=== PATIENT | female | born 1965 | race Caucasian/White ===

== ENCOUNTER 2021-06-13 18:17 | Emergency (ER) | payer BC, SELFPAY ==
--- NOTE | ~2021-06-13 | XR_ITS ---
[[id number] ] INDICATION: Right rib pain TECHNIQUE: Frontal projection of the upper right ribs, frontal projection of the lower right ribs, ob lique projection of all the right ribs, frontal inspiratory chest x-ray for interpretation. FINDINGS: There are no displaced rib fractures identified. There are no soft tissue abnormality see n. The lungs are clear. IMPRESSION: 1:No displaced rib fractures. Reviewed, dictated and finalized at location A. [facility]
[2021-06-13 18:31] VITALS: BP 131/93; PULSE 100; RESP 18; TEMP 36.9; O2SAT 100
--- NOTE | 2021-06-13 18:53 | ED.CHESTPAIN ---
HPI - Chest Pain General Chief Complaint: Chest Pain Stated Complaint: rt rib pain Source: patient and RN notes reviewed Limitations: no limitations History of Present Illness HPI narrative: The patient, a non-smoker/nondrinker, presents with atraumatic, right chest wall pain. Patient states she is has a history of right-sided breast cancer and is a 7-year survivor with associated chemo-induced. XRT osteoporosis. While doing stretching/yoga a week ago, she developed right-sided chest pain that is mild, worse with motion or deep breathing, better at rest; she is heard/felt a audible pop . No fever, cough, shortness of breath, bruising/skin changes; no loss of taste/smell, S OB, wheezing, other chest pains. Vital signs remarkable for blood pressure 130s over 90s. The patient has been informed that they may have pre-hypertension or Hypertension based on a BP reading in the department. I recommend that the patient call the primary care provider listed on their discharge instructions or a physician of their choice this week to arrange follow up for further evaluation of possible pre-hypertension or Hypertension Related Data Home Medications Medication Instructions Recorded Confirmed ascorbate calcium (vitamin C) 500 500 mg PO DAILY 04/22/20 mg tablet cholecalciferol (vitamin D3) 325 325 mcg PO WEEKLY 04/22/20 mcg (13,000 unit) capsule letrozole 2.5 mg tablet 2.5 mg PO DAILY 04/22/20 levothyroxine 50 mcg tablet 50 mcg PO DAILY 04/22/20 metformin 500 mg tablet 500 mg PO DAILY 04/22/20 Allergies Allergy/AdvReac Type Severity Reaction Status Date / Time No Known Allergies Allergy Verified 06/13/21 18:34 Review of Systems Review of Systems: General/Constitutional: No weight loss,fever Eyes: N0: Redness,discharge Ears/Nose/Throat: No: Epistaxis,ear discharge Respiratory: Denies: Hemoptysis Gastrointestinal: No Vomiting, Bleeding-rectal Skin: No Lumps, eruption Neurologic: No Focal Weakness,Sz Hematologic: Denies: Petechiae/Purpura Psychiatric: No: Suicida ideationl All Other Systems: Reviewed and Negative [facility] Past Medical History Medical History (Updated 06/14/21 @ 00:00 by Lonnie Gonzáles) History of breast cancer Hypothyroid Surgical History Surgical History (Updated 04/22/20 @ 16:37 by Beata Crawley CMA) History of breast reconstruction History of lymph node dissection of axilla History of mastectomy History of tonsillectomy History of wisdom tooth extraction Family History Family History (Updated 04/22/20 @ 16:38 by Beata Crawley CMA) Father Diabetes mellitus Comments At time of signature, agree with nursing past medical, surgical, social and family history. There is no relevant family history pertinent to the presenting complaint Exam Narrative: General Appearance: Well appearing, Conjunctiva clear Ears: External ear normal Nose: Normal nose Mouth/Throat: Normal appearing, Normal lips, Supple Respiratory: Tender right chest wall about T4-T6 anteriorly, airway patent, No respiratory distress Cardiovascular: RRR Abdomen: Soft, Non-tender, No massess, Musculoskeletal: Full ROM Skin: Warm, Dry, XRT changes of right chest Neurological: A&O x3, Normal affect Course Course Emergency Course: Films visualized, interpreted by radiologist, agree, normal see report Vital Signs Vital signs: Vital Signs Temperature 98.4 F 06/13/21 18:31 Pulse Rate 100 06/13/21 18:31 Respiratory Rate 18 06/13/21 18:31 Blood Pressure 131/93 H 06/13/21 18:31 Pulse Oximetry 100 06/13/21 18:31 Temperature 98.4 F 06/13/21 18:31 Pulse Rate 100 06/13/21 18:31 Respiratory Rate 18 06/13/21 18:31 Blood Pressure 131/93 H 06/13/21 18:31 Pulse Oximetry 100 06/13/21 18:31 Discharge Plan Discharge Clinical Impression: Chest wall pain Patient Disposition: Home, Self-Care Condition: Stable Instructions: Rib Contusion (ED) Prescript
== END 2021-06-13 19:12 | disposition home or self-care (01) ==
PROVIDERS: Emergency Provider Emergency Medicine; PCP Nurse Practitioner
DX: R07.89 Other chest pain (principal); E03.9 Hypothyroidism, unspecified; Z85.3 Personal history of malignant neoplasm of breast; M81.8 Other osteoporosis without current pathological fracture
CPT/HCPCS: 71101; 99213; G0463

== ENCOUNTER 2023-10-14 17:25 | Emergency (ER) | payer BC, SELFPAY ==
--- NOTE | ~2023-10-14 | XR_ITS ---
EXAM: XR finger 4th RT min 2V DATE: 10/14/2023 17:47 HISTORY: leash pulled finger . COMPARISON: None available. FINDINGS: Decreased mineralization. Oblique, minimally displaced, extra-articular fracture of the ri ght middle phalange. No lytic or blastic lesion. Mild scattered degenerative changes. No erosion or p eriosteal change. Soft tissues within normal limits. IMPRESSION: Oblique, minimally displaced, extra-articular fracture of the right fourth middle phalang e. Reviewed, dictated and finalized at location K. IMPRESSION: Oblique, minimally displaced, extra-articular fracture of the right fourth middle phalange.
--- NOTE | 2023-10-14 17:26 | ED.UPPEXIN ---
HPI - Extremity Injury (Upper) General Chief Complaint: Extremity Injury, Upper Stated Complaint: Right Finger Injury Time Seen by Provider: 10/14/23 17:26 Source: patient Mode of arrival: ambulatory Limitations: no limitations History of Present Illness HPI narrative: Patient is a 58-year-old female that presents with right distal ring finger injury. Patient states she was walking dogs and leash pulled finger. Patient states it was initially out of alignment and she pushed it back. Patient has history of lymph nodes removed on right arm and is concern for swelling. Ice placed in triage. Related Data Home Medications Medication Instructions Recorded Confirmed ascorbate calcium (vitamin C) 500 500 mg PO DAILY 04/22/20 10/14/23 mg tablet cholecalciferol (vitamin D3) 325 325 mcg PO WEEKLY 04/22/20 10/14/23 mcg (13,000 unit) capsule letrozole 2.5 mg tablet 2.5 mg PO DAILY 04/22/20 10/14/23 levothyroxine 50 mcg tablet 50 mcg PO DAILY 04/22/20 10/14/23 (Synthroid) metformin 500 mg tablet 500 mg PO DAILY 04/22/20 10/14/23 Allergies Allergy/AdvReac Type Severity Reaction Status Date / Time No Known Allergies Allergy Verified 10/14/23 17:38 Review of Systems Review of Systems: All systems reviewed & are unremarkable except as noted in HPI and below Constitutional: Constitutional: Denies body ache(s), Denies chills, Denies fatigue, Denies fever(s), Denies headache(s), Denies malaise and Denies weakness Eyes: Eyes: Denies blurry vision, Denies irritation and Denies loss of vision ENT: Denies otalgia, Denies headache(s), Denies nasal discharge, Denies sinus pain and Denies sore throat Cardiovascular: Cardiovascular: Denies chest pain, Denies irregular heart rhythm and Denies dyspnea Respiratory: Respiratory: Denies dyspnea Gastrointestinal: Gastrointestinal: Denies abdominal pain, Denies melena, Denies hematochezia, Denies diarrhea, Denies nausea and Denies vomiting Musculoskeletal: Musculoskeletal: Denies back pain, Denies myalgias and Reports arthralgias Integumentary/Breasts: Skin/Breast: Denies pruritus and Denies rash Neurologic: Denies headache(s), Denies loss of vision and Denies weakness Psychiatric: Psychiatric: Reports no additional psychiatric complaints Endocrine: Endocrine: Denies fatigue PMFSH Past Medical History Medical History History of breast cancer Hypothyroid Surgical History Surgical History History of breast reconstruction History of lymph node dissection of axilla History of mastectomy History of tonsillectomy History of wisdom tooth extraction Family History Family History Father Diabetes mellitus Father Diabetes mellitus Family history of cardiovascular disease Social History Social History Smoking status: Never smoker Comments At time of signature, agree with nursing past medical, surgical, social and family history. There is no relevant family history pertinent to the presenting complaint. Exam Const: General: cooperative, healthy appearing, comfortable, no acute distress and well nourished Nutritional Appearance: well nourished Orientation/consciousness: patient oriented x3 Limitations: no limitations HENMT: Head: normal to inspection, normocephalic and atraumatic Ears: hearing grossly normal bilaterally and external ears normal Face/Nose/Sinus: Normal external nose present, normal facial exam and face symmetric Face and sinus: normal facial exam and face symmetric Mouth: Yes lip normal Eyes: General: appearance normal, both eyes and all related structures Alignment and Position: alignment normal and position normal Periorbital: periorbital findings normal Eyelids: eyelids normal Pupils: Equal, round and reactive pupils present
[2023-10-14 17:32] VITALS: BP 121/50; PULSE 90; RESP 20; TEMP 36.8; O2SAT 99
== END 2023-10-14 18:37 | disposition home or self-care (01) ==
PROVIDERS: Emergency Provider Nurse Practitioner Family; PCP Nurse Practitioner
DX: S62.624A Displaced fracture of middle phalanx of right ring finger, initial encounter for closed fracture (principal); X58.XXXA Exposure to other specified factors, initial encounter; Y93.K1 Activity, walking an animal; E03.9 Hypothyroidism, unspecified; Z85.3 Personal history of malignant neoplasm of breast; Z90.10 Acquired absence of unspecified breast and nipple
CPT/HCPCS: 29130; 73140; 99213; G0463

== ENCOUNTER 2023-11-26 08:03 | Emergency (ER) | payer BC, SELFPAY ==
[2023-11-26 08:17] VITALS: BP 129/71; PULSE 78; RESP 16; TEMP 36.6; O2SAT 100
--- NOTE | 2023-11-26 08:18 | ED.SKABFB ---
HPI - Skin/Abscess/Foreign Bdy General Chief complaint: Skin/Abscess/Foreign Body Stated complaint: insect bite Source: patient Mode of arrival: ambulatory Limitations: no limitations History of Present Illness HPI narrative: 58 y/o female presented for c/o insect bite to left neck. First noticed 2 days ago. Endorses itching and the redness has spread since onset. Unsure of what type of insect. Pt has applied hydrocortisone and antibiotic ointment. Pt was staying in a hotel for a few days, but denies any other locations of skin changes/lesions. States she walked outside for several hours while in [facility]. Denies lip, tongue, or throat swelling, shortness of breath or wheezing. Denies changes to soap, detergent, lotion, or any other exposures. No one else in the house or any contacts with similar symptoms. Related Data Home Medications Medication Instructions Recorded Confirmed ascorbate calcium (vitamin C) 500 500 mg PO DAILY 04/22/20 11/26/23 mg tablet cholecalciferol (vitamin D3) 325 325 mcg PO WEEKLY 04/22/20 11/26/23 mcg (13,000 unit) capsule letrozole 2.5 mg tablet 2.5 mg PO DAILY 04/22/20 11/26/23 levothyroxine 50 mcg tablet 50 mcg PO DAILY 04/22/20 11/26/23 (Synthroid) metformin 500 mg tablet 500 mg PO DAILY 04/22/20 11/26/23 Allergies Allergy/AdvReac Type Severity Reaction Status Date / Time No Known Allergies Allergy Verified 11/26/23 08:18 Review of Systems Review of Systems: CONSTITUTIONAL: Denies body aches, fever, chills, or sweats. EYES: Denies visual changes, redness, or discharge. ENT: Denies rhinorrhea, congestion CARDIOVASCULAR: Denies chest pain, palpitations, or edema. RESPIRATORY: Denies cough or dyspnea. GASTROINTESTINAL: Denies abdominal pain, nausea, vomiting, or diarrhea. SKIN: reports itching, bite MUSCULOSKELETAL: Denies back pain, joint pain, or myalgia. NEUROLOGIC: Denies headache, numbness, tingling, or weakness. REPLACED BY [facility] Past Medical History Medical History History of breast cancer Hypothyroid Surgical History Surgical History History of breast reconstruction History of lymph node dissection of axilla History of mastectomy History of tonsillectomy History of wisdom tooth extraction Family History Family History Father Diabetes mellitus Father Diabetes mellitus Family history of cardiovascular disease Social History Social History Smoking status: Never smoker Comments At time of signature, I have reviewed and agree with nursing past medical, surgical, social and family history unless otherwise noted. Please see nursing chart for further information. There is no relevant family history pertinent to the presenting complaint Exam Narrative: GENERAL: Well-appearing HEAD: Normocephalic, atraumatic. EYES: conjunctivae clear, and EOMI. ENT: Mucous membranes moist. Oropharynx without edema, erythema or lesions. NECK: Supple. No lymphadenopathy; full ROM. CHEST: Clear to auscultation. HEART: Regular rate and rhythm. SKIN: Warm, dry. Left trap area with approx 4cm area of erythema, center with pinpoint hole c/w insect bite; no induration, fluctuance, drainage, or tenderness. NEURO: Alert and oriented x3. Neck: Neck images: 1. area of erythema Course Course Emergency Course: Patient is aware of diagnosis, understands and agrees to treatment plan. Anticipatory guidance given. Patient agrees to follow-up as directed and is aware of reasons to seek care at the emergency department. Portions of this record may have been created with voice recognition software Level of Care: [facility] Visit Vital Signs Vital signs: Vital Signs Temperature 97.8 F 11/26/23 08:17 Pulse Rate 78 11/26/23 08:17 Respira
[2023-11-26 08:19] VITALS: BP 129/71; PULSE 78; RESP 16; TEMP 36.6; O2SAT 100
== END 2023-11-26 08:40 | disposition home or self-care (01) ==
PROVIDERS: Emergency Provider Nurse Practitioner Family; PCP Nurse Practitioner
DX: S40.262A Insect bite (nonvenomous) of left shoulder, initial encounter (principal); W57.XXXA Bitten or stung by nonvenomous insect and other nonvenomous arthropods, initial encounter; E03.9 Hypothyroidism, unspecified; Z85.3 Personal history of malignant neoplasm of breast
CPT/HCPCS: 99213; G0463

== ENCOUNTER 2024-05-11 11:57 | Emergency (ER) | payer BC, SELFPAY ==
--- NOTE | 2024-05-11 12:03 | ED.FEMALEGU ---
HPI - Female Genitourinary General Chief complaint: Urogenital-Female Stated complaint: uti symptoms Time Seen by Provider: 05/11/24 12:17 Source: patient, RN notes reviewed and old records reviewed Mode of arrival: ambulatory Limitations: no limitations History of Present Illness HPI Narrative: 58-year-old female presents [facility] for a UTI. Urgency and burning with urination. Hematuria that started today. Related Data Home Medications Medication Instructions Recorded Confirmed ascorbate calcium (vitamin C) 500 500 mg PO DAILY 04/22/20 11/26/23 mg tablet cholecalciferol (vitamin D3) 325 325 mcg PO WEEKLY 04/22/20 11/26/23 mcg (13,000 unit) capsule letrozole 2.5 mg tablet 2.5 mg PO DAILY 04/22/20 11/26/23 levothyroxine 50 mcg tablet 50 mcg PO DAILY 04/22/20 11/26/23 (Synthroid) metformin 500 mg tablet 500 mg PO DAILY 04/22/20 11/26/23 Allergies Allergy/AdvReac Type Severity Reaction Status Date / Time No Known Allergies Allergy Verified 11/26/23 08:18 Review of Systems Review of Systems: All systems reviewed & are unremarkable except as noted in HPI and below Constitutional: Constitutional: Reports no additional constitutional complaints ENT: Reports system reviewed and no additional complaints, except as documented Cardiovascular: Cardiovascular: Reports no additional cardiovascular complaints, Denies chest pain and Denies dyspnea Respiratory: Respiratory: Reports no additional respiratory complaints, Denies chest congestion, Denies cough and Denies dyspnea Gastrointestinal: Gastrointestinal: Reports no additional gastrointestinal complaints, Denies abdominal pain, Denies nausea and Denies vomiting Genitourinary: Genitourinary: Reports as per HPI and Reports dysuria Musculoskeletal: Musculoskeletal: Reports no additional musculoskeletal complaints Integumentary/Breasts: Skin/Breast: Reports system reviewed and no additional complaints, except as docu PMFSH Past Medical History Medical History History of breast cancer Hypothyroid Surgical History Surgical History History of breast reconstruction History of lymph node dissection of axilla History of mastectomy History of tonsillectomy History of wisdom tooth extraction Family History Family History Father Diabetes mellitus Father Diabetes mellitus Family history of cardiovascular disease Social History Social History Smoking status: Never smoker Comments At the time of my signature, I reviewed and agree with the nursing past medical, surgical, social, and family history. There is no relevant family history pertinent to the patient complaint. Exam Const: General: cooperative, healthy appearing, comfortable, no acute distress, well developed, alert and well nourished Nutritional Appearance: well nourished Orientation/consciousness: patient oriented x3 Limitations: no limitations HENMT: Head: normal to inspection Ears: hearing grossly normal bilaterally and external ears normal Face/Nose/Sinus: Normal external nose present, normal facial exam and face symmetric Face and sinus: normal facial exam and face symmetric Eyes: General: appearance normal, both eyes and all related structures Alignment and Position: alignment normal Periorbital: periorbital findings normal Neck: Neck: normal visual inspection, full ROM, no lymphadenopathy and no meningeal signs Chest: Chest palpation & inspection: normal inspection of the chest Resp: Effort & Inspection: normal respiratory effort and able to speak in complete sentences Auscultation: clear to auscultation bilaterally, no crackles, no rales, no rhonchi and no wheezes Cardio: Rate: regular rate GI: GI Palp: No abdominal tenderness : General: Yes no CVA tendern
[2024-05-11 12:08] VITALS: BP 117/64; PULSE 84; RESP 16; TEMP 36.7; O2SAT 100
[2024-05-11 12:18] LABS: EDUAAPPEAR Cloudy; EDUABILI Negative (Negative); EDUABLOOD 3+ (Negative); EDUACOLOR1 Dark; EDUAGLUCOSE Negative (Negative); EDUAKETONE Negative (Negative); EDUALEUKO 1+ (Negative); EDUANITRATE Negative (Negative); EDUAPROTEIN 2+ (Negative); EDUASPGRAVITY 1.025; EDUAUROBILI 0.2
== END 2024-05-11 12:44 | disposition home or self-care (01) ==
PROVIDERS: Emergency Provider Nurse Practitioner; Referring Provider Emergency Medicine
DX: N30.01 Acute cystitis with hematuria (principal); E03.9 Hypothyroidism, unspecified
CPT/HCPCS: 81003; 87086; 99213; G0463

== ENCOUNTER 2025-03-11 08:07 | Emergency (ER) | payer BC, SELFPAY ==
--- OUTSIDE RECORDS SUMMARY | 2025-03-11 08:11 | XMS_ITS | Encounter Summary ---
Author Organization [facility] Address [address] [place] [address] Phone Care Team Providers Care Payroll Professional Name Role Phone Sahil Easley DO Primary Care Provider [phone]- [phone] Lizeth Osorio MD Primary Care Provider [phone] Enrique, Sandra Caceres MD PhD Unavailable Sahil Easley DO Primary Care Provider +- [phone] Lizeth Osorio MD Unavailable [phone] Encounter Details Date Type Department Care Team (Late st Contact Info) Description 12/09/2017 Orders Only [facility] ProviderRobbie MD [address] [place] [id number] Social History Tobacco Use Types Packs/Day Years Used Date Smoking Tobacco: Never Comments Unknown Sex and Gender Information Value Date Recorded Sex Assigned at Not on file 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 us Historical Provider LAB BLOOD ORDERABLES Kamila l Result documented in this encounter Visit Diagnoses Not on filedocumented in this encounter Care Teams Payroll Professional Relationship Specialty Start Date End Date Sahil Easley DO PCP - General 09/07/16 04/08/20 Lizeth Osorio MD PCP - General 04/09/20 09/07/24 Sahil Easley DO [address] [facility] [address] [place] [address] PCP - General Internal Medicine 09/08/24 Sandra Nunez MD PhD [address] [facility] [address] [place] [address] Medical Oncologist/Dispensary Clerk Medical Oncology 08/28/20 Lizeth Osorio MD [address] [address] Nurse Practitioner 11/28/24 documented as of this encounter
--- OUTSIDE RECORDS SUMMARY | 2025-03-11 08:11 | XMS_ITS ---
Author Organization [facility] Address [address] [place] [address] Care Team Providers Care Clerk General Name Role Phone Sandra Nunez MD PhD Unavailable Sahil Easley DO Primary Care Provider [phone] Lizeth Osorio MD Unavailable [phone] Active Problems Problem Noted Date Diagnosed Date Postoperative visit 10/26/2024 Encounter for screening for malignant neoplasm o f breast 08/28/2019 Subclinical hypothyroidism 04/04/2019 Assessment & Plan (04/04/2019 7:11 PM CDT): She was trialed on low dose levothyroxine on which she did not feel better. Her TSH is 3.8, largely unchanged from baseline of 4.9. It is unlikely that her symptoms are due to thyroid disease. Can check TPO Ab and recheck TFTs today. If her Ab are positive, then there is an ~10% chance that she will develop overt hypothyroidism each year. Discussed that one option in this scenario would be to dose levothyroxine at 1/2 her expected full replacement dose. If her TPO Ab is negative, then would recommend routine follow-up of TFTs and discontinuing levothyroxine. emergency management program specialist current use of aromatase inhibitor Osteopenia 01/31/2015 Assessment & Plan (04/04/2019 7:15 PM CDT): On zolendronic acid, last infusion 08/2018. Has had improvement in bone density in lumbar spine and left hip. Infusions per medical oncology. History of surgical procedure 10/23/2014 Malignant neoplasm of lower- outer quadrant of right breast of female, estrogen receptor positive 03/06/2014 Assessment & Plan (04/04/2019 7:13 PM CDT): On letrozole which is likely etiology of her weight gain. Her weight uptrend started in 2015 with completion of chemotherapy and starting letrozole Lobular carcinoma of breast 03/05/2014 Current Treatment and Therapy Plans No current plan information found. Past Treatment and Therapy Plans Oncology Supportive Care Therapy Plan Plan Name Start Date Discontinue Date Treatment Medications Discontinue Reason Plan Provider ZOLEDRONIC ACID (ZOMETA) INFUSION 08/23/2018 04/07/2021 No medications scheduled. Therapy Complete Sandra Nunez MD PhD Specialty Infusion Treatment Plan Name Start Date Discontinue Date Treatment Medications Discontinue Reason Plan Provider DENOSUMAB (PROLIA) INJECTION 06/20/2018 07/13/2018 No medications scheduled. Therapy Complete Sandra Nunez MD PhD Lifetime Dose Tracking * Chemical Lifetime Dose Automatic Entry Manual Entr y DLP 630 mGycm 630 mGycm 0 mGycm Resolved Problems Problem Noted Date Diagnosed Date Resolved Date PMB (postmenopausal bleeding) 07/20/2024 12/04/2024 Nausea 06/25/2014 12/04/2024
--- OUTSIDE RECORDS SUMMARY | 2025-03-11 08:11 | XMS_ITS | Clinical Summary ---
Author Organization [facility] Address [facility] [place] [address] Care Team Providers Care Ambulatory Service Representative Name Role Phone Unavailable Primary Care Provider Unavailabl e Allergies No known active allergies Medications aspirin EC 81 MG tablet Active Cholecalciferol (VITAMIN D-3 SUPER STRENGTH) 50 MCG (2000 UT) Tab daily. Active zoledronic acid 4 MG/5ML injection Inject 5 mLs into the vein every 6 (six) months. Active letrozole 2.5 MG tablet Take 2.5 mg by mouth daily. 03/08/2020 Active levothyroxine 50 MCG tablet TK 1 T PO SHIP SCRAPER B MANDA 03/08/2020 Active metFORMIN 500 MG tablet Take 500 mg by mouth 3 (three) times daily. 03/08/2020 Active Calcium Carb-Cholecalci ferol (CALCIUM CARBONATE-VITAM IN D3 OR) Active zinc gluconate 50 MG Tab Take 1 tablet by mouth daily. Active Active Problems Problem Noted Date Diagnosed Date H/O Jaye thyroiditis 04/05/2020 long-term current use of aromatase inhibitor Osteopenia 01/31/2015 Overview (04/05/2020): Last Assessment & Plan: On zolendronic acid, last infusion 08/2018. Has had improvement in bone density in lumbar spine and left hip. Infusions per medical oncology. Nausea 06/25/2014 Malignant neoplasm of lower- outer quadrant of right breast of female, estrogen receptor positive ([facility]/HCC [facility]/HCC) 03/06/2014 Overview (04/05/2020): 02/2014; invasive lobular cancer; right breast; clinical stage II-T2, N0, M0; ER/WA positive HER-2 negative Last Assessment & Plan: On letrozole which is likely etiology of her weight gain. Her weight uptrend started in 2015 with completion of chemotherapy and starting letrozole Lobular carcinoma of breast (CMS/HCC [facility]/HCC) Resolved Problems Problem Noted Date Diagnosed Date Resolved Date Encounter for screening for malignant neoplasm of breast 08/28/2019 04/05/2020 Subclinical hypothyroidism 04/04/2019 0 04/05/2020 Overview (04/05/2020): Last Assessment & Plan: She was trialed on low dose levothyroxine [...] routine follow-up of TFTs and discontinuing levothyroxine. History of surgical procedure 10/23/2014 04/05/2020 Immunizations Immunization Administration Dates Next Due Fluzone 6 Months+ Quad (0.5 mL Prefilled Syringe ) 04/05/2020 Family History Medical History Relation Comments Diabetes Father Heart Disease Father Relation Status Comments Father Social History Tobacco Use Types Packs/Day Years Used Date Smoking Tobacco: Never Smokeless Tobacco: Never Alcohol Use Standard Drinks/Week Comments Yes 0 (1 standard drink = 0.6 oz pur e alcohol) Comments Unknown Sex and Gender Information Value Date Recorded Sex Assigned at Not on file Legal Sex Female 9:07 PM [employer] Gender Identity Not on file Sexual Orientation Not on file Last Filed Vital Signs Vital Sign Reading Time Taken Comments Blood Pressure 137/85 12/17/2020 9:34 AM CDT Pulse 81 12/17/2020 9:34 AM CDT Temperature 36.2 C (97.2 F) 12/17/2020 9:34 AM CDT Respiratory Rate 18 12/17/2020 9:34 AM CDT Oxygen Saturation 100% 12/17/2020 9:34 AM CDT Inhaled Oxygen Concentration - - Weight 77.1 kg (170 lb) 12/17/2020 9:34 AM CDT Height 162.6 cm (5' 4) 12/17/2020 9:34 AM CDT Body Mass Index 29.18 12/17/2020 9:34 AM CDT Plan of Treatment Health Maintenance Due Date Last Done Comments Colorectal Cancer Screening Colonoscopy (10 Years) 1963 Annual Physical 1966 Hepatitis C 1981 DTaP, Tdap and Td Vaccines ( 1 - Tdap) 1982 Pneumococcal Vaccine: 50+ Years (1 of 1 - PCV) 2013 Zoster Vaccines (1 of 2) 2013 Cervical Cancer Screening Pa p Smear (Age 30 to 64) Every 3 Years 01/26/2020 01/25/2017 Cervical Cancer Screening Pa p with HPV Testing (Age 30 to 64) Every 5 Years 01/25/2022 01/25/2017 Cervical Cancer Screening wi th HPV 01/25/2022 COVID-19 Vaccine (2023-2 5 season) 2024 10/27/2020, 10/01/2020 PHQ-2 (Physician Yuhaaviatam) 07/19/2024 RSV Immunization or 60+ Years (1 - 1-dose 75+ series) 2038 Meningococcal B Vaccine Aged Out No l onger eligible based on patient's age to complete this topic Meningococcal Vaccine Aged Out No ayaka merari eligible based on patient's age to complete this topic RSV Immunizations Under 20 Months Aged Out No longer eligible b ased on patient's age to complete this topic Insurance [facility]
--- OUTSIDE RECORDS SUMMARY | 2025-03-11 08:11 | XMS_ITS | Clinical Summary ---
Author Organization [facility] Address [address] [place] [address] Care Team Providers Care Hr Advisor Name Role Phone Sandra Nunez MD PhD Unavailable [phone] Sahil Easley DO Primary Care Provider [phone] Lizeth Osorio MD Unavailable [phone] Allergies No known active allergies Medications cholecalciferol (VITAMIN D-3) 2000 unit tabletIndicatio ns:Vitamin D Deficiency 1 tablet (2,000 Units total) fermenting cellars receiver before breakfast Active levothyroxine (SYNTHROID) 50 mcg tabletIndicatio ns:Malignant neoplasm of lower-outer quadrant of right breast of female, estrogen receptor positive (HCC) TAKE 1 TABLET BY MOUTH EVERY MORNING BEFORE BREAKFAST 90 tablet 3 4 Active metFORMIN (GLUCOPHAGE) 500 mg tabletIndicatio ns:Malignant neoplasm of lower-outer quadrant of right breast of female, estrogen receptor positive (HCC) TAKE 1 TABLET BY MOUTH THREE TIMES DAILY 90 tablet 6 5 Active calcium carbonate-vitam in D3 1,500 mg (600 mg elemental)-400 unit capsuleIndicati ons:Hypocalcemi a Prevention,Prev ention of Vitamin D Deficiency Take 1 tablet/capsule by mouth fermenting cellars receiver before breakfast Active magnesium glycinate 118 mg magnesium capsuleIndicati ons:Supplement Take 2 tablets by mouth nightly Active tamoxifen (NOLVADEX) 20 mg tablet TAKE 1 TABLET(20 MG) BY MOUTH DAILY 30 tablet 5 04/22/202 5 Active Active Problems Problem Noted Date Diagnosed [...] routine follow-up of TFTs and discontinuing levothyroxine. alf current use of aromatase inhibitor Osteopenia 01/31/2015 [...] starting letrozole Lobular carcinoma of breast 03/05/2014 Resolved Problems Problem Noted Date Diagnosed Date Resolved Date PMB (postmenopausal bleeding) 07/20/2024 12/04/2024 Nausea 06/25/2014 12/04/2024 Encounters Date Type Department Care Team Description 02/28/2025 3:30 PM CDT Lab [facility] Advanced Medicine [facility] Advanced Medicine ([facility]) [address] [place] [address] Subclinical hypothyroidism; Malignant neoplasm of lower-outer quadrant of right breast of female, estrogen receptor positive (HCC) 02/28/2025 Orders Only [facility] Endocrinology Metabolism and Lipid [address] [facility] 13 [place] [address] [place] [address] Ying Gonzáles, RN Subclinical hypothyroidism (Primary Dx) 02/01/2025 Orders Only [facility] Endocrinology Metabolism and Lipid [address] [facility] 5th [place] [address] [place] [address] Ying Gonzáles RN 01/29/2025 Orders Only [facility] Oncology [address] [facility] [address] [place] [id number] Montez White Malignant neoplasm of lower-outer quadrant of right breast of female, estrogen receptor positive (HCC) (Primary Dx) 01/23/2025 4:00 PM CDT Telemedicine [facility] Endocrinology Metabolism and Lipid [address] [facility] 5th [place] [address] [place] [address] Jamar Blue MD Subclinical hypothyroidism (Primary Dx) from Last 3 Months Immunizations Immunization Administration Dates Next Due Influenza, Quadrivalent, Spl it, Preservative Free, Intramuscular 04/05/2020 Influenza, Trivalent, Preservative Free, Intramu scular 05/01/2014 Surgical History Surgery Date Site/Laterality Comments SC BREAST REDUCTION 07/19/2001 - 07/18/2002 Breast Surgery Reduction Procedure - (Added by Conv) MASTECTOMY 03/19/2014 - 04/17/2014 Bilateral Breast Surgery Mastectomy - (Added by Conv) TONSILLECTOMY AND ADENOIDECTOMY 07/19/1981 - 07/18/1982 LYMPH NODE BIOPSY Medical History Medical History Date Comments Breast cancer (HCC) Hypothyroid PONV (postoperative nausea and vomiting) imrpoved by scopalamine, oral antiemetic, and IV antiemetic Family History Medical History Relation Name Comments Diabetes Father Family history of diabetes mellitus - (Added by Conv) Heart disease Father Family history of cardiac disorder - (Added by Conv) Diabetes Other Family history of diabetes mellitus - (Added by Conv) Anesthesia problems Neg Hx Malig Hypertension Neg Hx Malig Hyperthermia Neg Hx Pseudochol deficiency Neg Hx Relation Name Status Comments Father Other Social History Tobacco Use Types Packs/Day Years Used Date Smoking Tobacco: Never Smokeless Tobacco: Never Tobacco Cessation:Counseling Given: Not Answered AUDIT-C Answer Date Recorded Q1: How often do you have a drink containing alc ohol? 2-3 times a week 10/20/2024 Q2: How many drinks containi ng alcohol do you have on a typical day when you are drinking? 1 or 2 10/20/2024 Q3: How often do you have si x or more drinks on one occasion? Never 10/20/2024 Personal Safety Answer Date Recorded Have you ever been in or are you currently in a harmful physical or emotional relationship or is someone making you feel afraid or unsafe? Denies 10/20/2024 Comments No Sex and Gender Information Value Date Recorded Sex Assigned at Not on file Legal Sex Female 4:23 AM DEVELOPMENT EDUCATOR Gender Identity Female 03/28/2019 6:48 AM CDT Sexual Orientation Straight 03/28/2019 6: 48 AM CDT Obstetrics History Para Term AB IAB SAB Ectopic Multiple Livin g Live Births 3 3 Date Outcome GA Total Labor Labor/2nd/3rd Weight Sex Type Anes PTL Clarice A1 A5 Name Clin Para Para Para Comments G3, P3 first full term pregn ford 18 years of age. Gave first child for adoption. Menses at age 10. ~ 20 year history of oral contraceptive pill use, stopped in February 2014. Last Filed Vital Signs Vital Sign Reading Time Taken Comments Blood Pressure 118/83 12/04/2024 9:05 AM CDT Pulse 73 12/04/2024 9:05 AM CDT Temperature 36.8 C (98.2 F) 12/04/2024 9:05 AM CDT Respiratory Rate 20 10/26/2024 4:14 PM CDT Oxygen Saturation 98% 12/04/2024 9:05 AM CDT Inhaled Oxygen Concentration - - Weight 75.8 kg (167 lb) 01/23/2025 3:43 PM CDT Height 162.6 cm (5' 4) 01/23/2025 3:43 PM CDT Body Mass Index 28.67 01/23/2025 3:43 PM CDT Plan of Treatment Health Maintenance Due Date Last Done Comments Colon Cancer Screening-Colonoscopy 1963 Depression Screening 1965 Hepatitis C Screening 1963 DTaP/Tdap/Td Vaccine (1 - Tdap) 1974 Hepatitis B Screening 1981 Regular Well Visit/Exam 18-64 1981 Pneumococcal vaccine <65 (1 of 2 - PCV) 1982 Zoster Vaccine (1 of 2) 1982 Breast Cancer Screening-Mammogram 02/19/2015 014, 02/19/2014 Influenza Vaccine (#1) 2025 04/05/2020, 2013 Cervical Cancer Screening 07/20/20252024, 07/20/2024, 01/25/2017 Medical Devices Implanted Type Area Client Evaluator Device Identifier Shelf Expiration Date Model / Serial / Lot Breast Breast Chest Procedures Procedure Name Priority Date/Time Associated Diagnosis Comments TSH Routine 02/28/2025 2:24 PM CDT Subclinical hypothyroidism EGFR Routine 02/28/2025 2:24 PM CDT Malignant neoplasm of lower-outer quadrant of right breast of female, estrogen receptor positive (HCC) DIFFERENTIAL AUTO Routine 02/28/2025 2:2 4 PM CDT Malignant neoplasm of lower-outer quadrant of right breast of female, estrogen receptor positive (HCC) CBC WITH AUTO DIFFERENTIAL Routine 02/28/2025 2:24 PM CDT Malignant neoplasm of lower-outer quadrant of right breast of female, estrogen receptor positive (HCC) COMPREHENSIVE METABOLIC PANEL Routine 02/28/2025 2:24 PM CDT Malignant neoplasm of lower-outer quadrant of right breast of female, estrogen receptor positive (HCC) CANCER ANTIGEN 15-3 Routine 02/28/2025 2 :24 PM CDT Malignant neoplasm of lower-outer quadrant of right breast of female, estrogen receptor positive (HCC) T4, FREE Routine 02/28/2025 2:24 PM CDT Subclinical hypothyroidism T3, FREE Routine 02/28/2025 2:24 PM CDT Subclinical hypothyroidism HEMOGLOBIN A1C Routine 02/28/2025 2:24 PM CDT Subclinical hypothyroidism HIGH RISK HPV DNA DETECTION WITH GENOTYPING Routine 07/20/2024 4:36 PM DEVELOPMENT EDUCATOR SCREENING MAMMOGRAM W ADY Routine 02/19/2014 12:28 PM CDT from Last 3 Months or Most Recently Relevant to Health Maintenance Results * eGFR (02/28/2025 2:24 PM CDT) eGFR 77 >=60 mL/min/1. 73 m2 Comment: Interpretive Data Reference Interval Normal >/= 90 mL/min/1.73m2 Mildly decreased* 60 - 89 mL/min/1.73m2 Mildly to moderately decreased 45 - 59 mL/min/1.73m2 Moderately to severely decreased 30 - 44 mL/min/1.73m2 Severely decreased 15 - 29 mL/min/1.73m2 Kidney Failure < 15 mL/min/1.73m2 *Relative to young adult level Estimated glomerular filtration rate is determined by the 2020 CKD-EPI equation recommended by the National Kidney Foundation (A Unifying Approach to GFR Estimation: Recommendations of the NKF-ASK Task Force on Reassessing the Inclusion of Race in Diagnosing Kidney Disease, JASN 2020). The CKD-EPI equation should not be used for patients with unstable renal function and has not been validated in children and those over 70. Current interpretive data was last reviewed 2021. Blood 02/28/2025 2:24 PM CDT 02/28/2025 2:56 PM CDT us Sandra Caceres Ma, MD PhD LAB BLOOD ORDERABLES Final Result [facility] [address] [facility] [address] Department of Laboratories [place], [place] [id number] * Differential, auto (02/28/2025 2:24 PM CDT) Neutrophil abs 3.84 1.50 - 6.50 K/cumm Imm gran abs 0.01 0.00 - 0.10 K/cumm [facility] Lymphocyte abs 2.29 0.80 - 3.30 K/cumm [facility] Monocyte abs 0.55 0.20 - 0.80 K/cumm [facility] Eosinophil abs 0.05 0.00 - 0.50 K/cumm [facility] Basophil abs 0.05 0.00 - 0.10 K/cumm [facility] Neutrophil pct 56.7 % [facility] Comment: Interpretive Data Percent cell count reference ranges are not reported, since discordance with absolute values may lead to misinterpretation of CBC data. Current Interpretive Data was last revised on 2017. Imm gran pct 0.1 % [facility] Comment: Interpretive Data Percent cell count reference ranges are not reported, since discordance with absolute values may lead to misinterpretation of CBC data. Current Interpretive Data was last revised on 2017. Lymphocyte pct 33.7 % [facility] Comment: Interpretive Data Percent cell count reference ranges are not reported, since discordance with absolute values may lead to misinterpretation of CBC data. Current Interpretive Data was last revised on 2017. Monocyte pct 8.1 % [facility] Comment: Interpretive Data Percent cell count reference ranges are not reported, since discordance with absolute values may lead to misinterpretation of CBC data. Current Interpretive Data was last revised on 2017. Eosinophil pct 0.7 % [facility] Comment: Interpretive Data Percent cell count reference ranges are not reported, since discordance with absolute values may lead to misinterpretation of CBC data. Current Interpretive Data was last revised on 2017. Basophil pct 0.7 % [facility] Comment: Interpretive Data Percent cell count reference ranges are not reported, since discordance with absolute values may lead to misinterpretation of CBC data. Current Interpretive Data was last revised on 2017. Blood 02/28/2025 2:24 PM CDT 02/28/2025 2:52 PM CDT us Sandra Caceres Ma, MD PhD LAB BLOOD ORDERABLES Final Result [facility] [address] [facility] [facility] Department [place] [address] * (ABNORMAL) CBC with auto differential (02/28/2025 2:24 PM CDT) [facility] WBC 6.79 3.80 - 9.90 K/cumm Hgb 11.9 11.9 - 15.5 g/dL [facility] Hct 35.8 35.6 - 45.5 % [facility] Plt 260 150 - 400 K/cumm [facility] MPV 10.2 9.1 - 12.3 fL [facility] RBC 3.80(L) 3.90 - 5.20 M/cumm [facility] MCV 94.2 81.3 - 96.4 fL [facility] MCH 31.3 27.1 - 33.3 pg [facility] MCHC 33.2 32.3 - 35.7 g/dL [facility] RDW CV 13.1 11.1 - 14.9 % [facility] RDW SD 45.1 35.7 - 48.1 fL [facility] NRBC abs 0.00 0.00 - 0.01 K/cumm [facility] Blood 02/28/2025 2:24 PM CDT 02/28/2025 2:52 PM CDT Sandra Caceres Ma, MD PhD LAB BLOOD ORDERABLES Final Result Performing Organization Address City[facility] Co de Phone Number [facility] Department [place] [address] * Cancer antigen 15-3 (02/28/2025 2:24 PM CDT) [facility] CA 15-3 ag 22.7 <=25.0 units/mL Comment: Interpretive Data The Salvador CA 15-3 assay procedure was used. Results from different manufacturers or methods may not be comparable. Serial testing should be performed using the same method. Blood 02/28/2025 2:24 PM CDT 02/28/2025 2:52 PM CDT Sandra Caceres Ma, MD PhD LAB BLOOD ORDERAB[place] [address] * T3, free (02/28/2025 2:24 PM CDT) Free T3 2.7 2.0 - 4.4 pg/mL Blood 02/28/2025 2:24 PM CDT 02/28/2025 2:52 PM CDT Jamar Blue MD LAB BLOOD ORDERABLES Fin al Result Performing Organization Address City/[facility] [place] [address] * TSH (02/28/2025 2:24 PM CDT) Thyroid Stimulating Hormone 3.26 0.30 - 4.20 mcIUnit/mL Blood 02/28/2025 2:24 PM CDT 02/28/2025 2:56 PM CDT Jamar Blue MD LAB BLOOD ORDERABLES Fin al Result Performing Organization Address [facility] [place] [address] * T4, free (02/28/2025 2:24 PM CDT) Free T4 1.27 0.90 - 1.70 ng/dL Blood 02/28/2025 2:24 PM CDT 02/28/2025 2:52 PM CDT Jamar Blue MD LAB BLOOD ORDERABLES Fin al Result Performing Organization Address [facility] [place] [address] * (ABNORMAL) Hemoglobin A1c (02/28/2025 2:24 PM CDT) [facility] Hgb A1C 5.8(H) 4.0 - 5.6 % Estimated Average Glucose 120 mg/dL [facility] Comment: The ADA recommends reporting an estimated Average Glucose (eAG) with all Hemoglobin A1c results using the equation derived from a study of 507 normal and diabetic adults. Minority populations were underrepresented and children were not included. (Diabetes Care 2020; 43(S1): S66-S76). The eAG is not equivalent to a fasting glucose. Blood 02/28/2025 2:24 PM CDT 02/28/2025 2:53 PM CDT us Jamar Blue MD LAB BLOOD ORDERABLES Fin al Result [facility] [address] [facility] Department [place] [address] * (ABNORMAL) Comprehensive metabolic panel (02/28/2025 2:24 PM CDT) [facility] Sodium 142 135 - 145 mmol/L Potassium, pl 4.2 3.3 - 4.9 mmol/L [facility] Chloride 104 97 - 110 mmol/L [facility] CO2 31 22 - 32 mmol/L [facility] Anion gap 7 2 - 15 mmol/L [facility] BUN 20 6 - 25 mg/dL [facility] Creatinine 0.86 0.60 - 1.10 mg/dL [facility] Glucose 98 70 - 199 mg/dL [facility] Comment: Interpretive Data Fasting glucose >/= 126 mg/dl is diagnostic for diabetes. Fasting is defined as no caloric intake for at least 8 hours. Fasting glucose between 100 mg/dl to 125 mg/dl is diagnostic of prediabetes. In a patient with classic symptoms of hyperglycemia or hyperglycemic crisis, a random glucose >/= 200 mg/dl is diagnostic for diabetes. In the absence of unequivocal hyperglycemia, results should be confirmed by repeat testing. The classification and Diagnosis of Diabetes Diabetes Care 202; 46: S19-S40. Current interpretive data was last revised 2022. Calcium 9.9 8.5 - 10.3 mg/dL [facility] Bilirubin, total 0.2 0.1 - 1.2 mg/dL [facility] Protein, pl 6.6 6.5 - 8.5 g/dL [facility] Albumin 4.1 3.5 - 5.0 g/dL [facility] Alk phos 34(L) 40 - 130 Units/L [facility] ALT 18 7 - 45 Units/L [facility] AST 22 10 - 45 Units/L [facility] Blood 02/28/2025 2:24 PM CDT 02/28/2025 2:52 PM CDT Sandra Caceres Ma, MD PhD LAB BLOOD ORDERABLES Final Result [facility] [address] [facility] [address] Department [place] [address] * High Risk HPV DNA Detection with Genotyping (Molecular component) (07/20/2024 4:36 PM DEVELOPMENT EDUCATOR) Pathologist [facility] HPV HR 16 Not Detected Not Detected [facility] HPV HR 18 Not Detected Not Detected [facility] HPV HR Non 16/18 Not Detected Not Detected [facility] Comment: Interpretive Data Nucleic acid amplification for detection of high-risk Human Papilloma virus (HPV) is performed by the Salvador Alessandro 6800 HPV test. This assay specifically detects HPV-16 and HPV-18 genotypes. The following HPV genotypes are detected as high-risk HPV: HPV-31, 33, 35, ,39, 45, 51, 52, 56, 58, 59, 66, and 68. This assay has been approved by the [place] Food and Drug Administration for detection of HPV in cervical specimens collected by a physician using an endocervical brush/spatula or cervical broom and placed in the ThinPrep Pap Test PreservCyt collection containers. The performance characteristics of this test have been verified by the [facility] Molecular Infectious Disease laboratory. Correlate with separately reported cytology results, as applicable. Interpretive data last revised 23 Endocervical 07/20/2024 4:36 PM DEVELOPMENT EDUCATOR 07/24/2024 10:20 AM DEVELOPMENT EDUCATOR us Isacc Ball MD LAB BODY FLUIDS AND STOO LS ORDERABLES Final Result [facility] [address] [facility] Department [place] [address] [facility] * Screening Mammogram W Ady (02/19/2014 12:28 PM CDT) Anatomical Region Laterality Modality Breast N/A Mammography 02/19/2014 12:2 8 PM CDT Narrative 02/20/2014 10:24 AM CDT NOY CHRISTIAN M.D. FINAL REPORT ACC# Date Time Exam [id number] Feb 19, 2014 12:28:00 [facility] [id number] Bilateral screen w ady Technologist(s): Jory Truong; ; EXAMINATION: Mammogram Technique: Bilateral Bilateral Full-Field Digital Screening Mammogram and Digital Breast Tomosynthesis were performed. Views obtained: bilateral craniocaudal and bilateral mediolateral oblique. Computer Aided Detection of the 2D images was performed with CrowdCurity.3 version 9.3. Mammogram Findings: The present examination has been compared to a prior imaging study performed at [facility] on 06/20/2012. The breasts are heterogeneously dense which could obscure a lesion on mammography. There are punctate calcifications with associated architectural distortion in the upper outer quadrant of the right breast. There is no suspicious abnormality in the left breast. IMPRESSION: Calcifications in the right breast require additional evaluation. Additional views are recommended. The distortion may actually be an irregular mass with spiculation and indistict calcifications. OVERALL FINAL ASSESSMENT: BI-RADS CATEGORY 0: Incomplete: Need additional imaging evaluation. Requested By: Kb Dominguez M.D. Dictated By: NOY CHRISTIAN M.D. on Feb 20 2014 10:24A This document has been electronically signed by: NOY CHRISTIAN M.D. on Feb 20 2014 10:24A Procedure Note Provider, MD Robbie - 11/14/2016 NOY CHRISTIAN M.D. FINAL REPORT ACC# Date Time Exam [id number] Feb 19, 2014 12:28:00 [facility] [id number] Bilateral screen w ady Technologist(s): Jory Truong; ; EXAMINATION: Mammogram Technique: Bilateral Bilateral Full-Field Digital Screening Mammogram and Digital Breast Tomosynthesis were performed. Views obtained: bilateral craniocaudal and bilateral mediolateral oblique. Computer AidedDetection of the 2D images was performed with CrowdCurity.3 version 9.3. Mammogram Findings: The present examination has been compared to a prior imaging study performed at [facility] on 06/20/2012. The breasts are heterogeneously dense which could obscure a lesion on mammography. There are punctate calcifications with associated architecturaldistortion in the upper outer quadrant of the right breast. There is no suspicious abnormality in the left breast. IMPRESSION: Calcifications in the right breast require additional evaluation. Additional views are recommended. The distortion may actually be an irregular mass with spiculation and indistict calcifications. OVERALL FINAL ASSESSMENT: BI-RADS CATEGORY 0: Incomplete: Need additional imaging evaluation. Requested By: Kb Dominguez M.D. Dictated By: NOY CHRISTIAN M.D. on Feb 20 2014 10:24A This document has been electronically signed by: NOY CHRISTIAN M.D. on Feb 20 2014 10:24A [facility] Provider MD MEAD MAMMO PROCEDURES Kamila l Result from Last 3 Months or Most Recently Relevant to Health Maintenance Insurance [facility] ANTHEM ACCESS Member Subscriber Plan / Payer (Ef fective 2018-Present) Name:Stephanie Chapin Relation to Subscriber:Spouse Name:HECTOR WATSON Subscriber ID:Not on file Date of :1966 (Home) Address: [address] [place] [address] [place] [address] Payer ID:[id number] (NAIC) Type:HereOrThere Address: [address] [place] [address] BLUE [employer] [place] BLUE ACCESS OOS [facility] Care Teams Hr Advisor Relationship Specialty Start Date End Date Sahil Easley DO [address] [facility] [address] [place] [address] PCP - General Internal Medicine 09/08/24 Enrique, Sandra Caceres MD PhD [address] [facility] [address] [place] [address] Medical Oncologist/Principal Embedded Software Engineer Medical Oncology 08/28/20 Lizeth Osorio MD [address] [place] [address] Nurse Practitioner 11/28/24
[2025-03-11 08:14] VITALS: BP 119/69; PULSE 67; RESP 18; TEMP 36.1; O2SAT 99
--- NOTE | 2025-03-11 08:14 | ED.FEMALEGU ---
HPI - Female Genitourinary General Chief complaint: Urogenital-Female Stated complaint: UTI Patient presents to the [facility] with complaints of burning with urination, urinary urgency, bladder pressure that began yesterday. Patient reports frequent urinary tract infection denies any hard to treat UTIs. Denies fever, chills, body aches, vaginal symptoms, blood in urine, lower back pain, or flank pain. Related Data Home Medications ?Medication ?Instructions ?Recorded ?Confirmed ?Last Taken ?Type ascorbate calcium (vitamin C) 500 500 mg PO DAILY 04/22/20 03/11/25 Unknown History mg tablet cholecalciferol (vitamin D3) 325 325 mcg PO WEEKLY 04/22/20 03/11/25 Unknown History mcg (13,000 unit) capsule letrozole 2.5 mg tablet 2.5 mg PO DAILY 04/22/20 03/11/25 Unknown History levothyroxine 50 mcg tablet 50 mcg PO DAILY 04/22/20 03/11/25 Unknown History (Synthroid) metformin 500 mg tablet 500 mg PO DAILY 04/22/20 03/11/25 Unknown History tamoxifen 20 mg tablet mg 03/11/25 Unknown History Allergies Allergy/AdvReac Type Severity Reaction Status Date / Time No Known Allergies Allergy Verified 03/11/25 08:09 Review of Systems Constitutional: Constitutional: Reports as per HPI, Denies chills and Denies fatigue Eyes: Eyes: Reports no additional eye complaints Cardiovascular: Cardiovascular: Reports no additional cardiovascular complaints Respiratory: Respiratory: Reports no additional respiratory complaints Gastrointestinal: Gastrointestinal: Reports as per HPI, Denies abdominal pain, Denies diarrhea, Denies nausea and Denies vomiting Genitourinary: Genitourinary: Reports as per HPI, Denies hematuria, Reports nocturia, Reports dysuria, Denies pelvic pain, Denies flank pain, Denies urinary incontinence and Denies vaginal discharge Musculoskeletal: Musculoskeletal: Reports no additional musculoskeletal complaints Neurologic: Reports system reviewed and no additional complaints, except as documented Psychiatric: Psychiatric: Reports no additional psychiatric complaints Endocrine: Endocrine: Reports no additional endocrine complaints Hematologic/Lymphatic: Hematologic/Lymphatic: Reports no additional hematologic/lymphatic complaints Allergic/Immunologic: Allergic/Immunologic: Reports no additional allergic/immunologic complaints PMFSH Past Medical History Medical History History of breast cancer Hypothyroid Surgical History Surgical History History of breast reconstruction History of lymph node dissection of axilla History of mastectomy History of tonsillectomy History of wisdom tooth extraction Family History Family History Father Diabetes mellitus Father Diabetes mellitus Family history of cardiovascular disease Social History Social History Smoking status: Never smoker Exam Const: General: healthy appearing and no acute distress Nutritional Appearance: well nourished Orientation/consciousness: patient oriented x3 Limitations: no limitations Resp: Effort & Inspection: normal respiratory effort Auscultation: clear to auscultation bilaterally Cardio: Rate: regular rate Rhythm: regular rhythm GI: GI Palp: Yes Soft to palpation, No Tenderness to palpation present (GI), No Guarding due to palpation present (GI) and No Rigid due to palpation Auscultation: normal bowel sounds : General: Yes bladder normal to palpation, No Bladder palpation abnormal, No CVA tenderness and Yes no CVA tenderness Back/Spine/Pelvis: Back: no CVA tenderness Skin: General skin exam: normal color Rashes: no rashes Wounds: no wounds Neuro: General: patient oriented x3 Speech: normal speech Gait exam (Neuro): Normal gait present Psych: Appearance: grossly normal Mental Status: mental status grossly normal Affect: normal affect Attitude: cooperative Course Course Level of Care: Express Care Visit MDM - Female Genitourinary MDM Narrative Medical decision making narrative: The patient was evaluated by myself in the express care. History is obtained from patient who is an independent historian and physical exam was performed. Available medical records were reviewed at this time. Exam findings show no acute concerns or changes; patient is non-toxic appearing and is in no distress. Patient is appropriate for outpatient treatment and follow-up. I have evaluated and discussed social determinants of health with the patient that could potentially impact subsequent diagnosis and treatment plans. Differential diagnosis and treatment plan were discussed with the patient. Patient agrees with discussion and after shared medical decision making agrees with plan of care. All questions were answered to the patient's satisfaction. Differential Diagnosis Differential diagnosis: Likely urinary tract infection, bacterial vaginosis, cervicitis, cystitis and dysmenorrhea Medical Records Attestation: I reviewed the patient's medical records. Lab Data Attestation: I reviewed the patient's lab results. Discharge Plan Discharge Clinical Impression: Cystitis Patient Disposition: Home Condition: Stable Instructions: Antibiotic Form, Urinary Tract Infection in Women (ED) Additional Instructions: We will send a urine culture off to the lab; if the culture identifies an organism that the prescribed antibiotic will not treat, you will receive a phone call from an urgent care staff member and an appropriate antibiotic will be prescribed. -Your symptoms should begin to improve within a day of starting antibiotics. But you should finish all the antibiotic pills you get. Otherwise your infection might come back. -Also recommend: drink more fluid. It might help flush out germs, and it does no harm -Tylenol/ibuprofen as needed for pain -Follow-up with your primary care provider for urine recheck OR if your symptoms persist, change or worsen significantly before you can contact your personal physician then please, without delay, go to the emergency department for further evaluation. - Given your frequent UTIs recommend using D mannose daily supplement this is available [id number]. Patient Language: Yakut Prescriptions: New nitrofurantoin monohyd/m-cryst [Macrobid] 100 mg capsule 100 mg PO Q12H 5 Days Qty: 10 0RF Rx Instructions: must administer with a meal/food No Action tamoxifen 20 mg tablet levothyroxine [Synthroid] 50 mcg tablet 50 mcg PO DAILY cholecalciferol (vitamin D3) 325 mcg (13,000 unit) capsule 325 mcg PO WEEKLY letrozole 2.5 mg tablet 2.5 mg PO DAILY metformin 500 mg tablet 500 mg PO DAILY ascorbate calcium (vitamin C) 500 mg tablet 500 mg PO DAILY Follow-up/Referrals: Sahil Easley DO [Primary Care Provider, Internal Medicine] Time of Disposition: 08:30
[2025-03-11 08:21] LABS: EDUAAPPEAR Cloudy; EDUABILI Negative (Negative); EDUABLOOD 3+ (Negative); EDUACOLOR1 Yellow; EDUAGLUCOSE Negative (Negative); EDUAKETONE Negative (Negative); EDUALEUKO 2+ (Negative); EDUANITRATE Negative (Negative); EDUAPH 8.5; EDUAPROTEIN 2+ (Negative); EDUASPGRAVITY 1.030; EDUAUROBILI 0.2
== END 2025-03-11 08:31 | disposition home or self-care (01) ==
PROVIDERS: Emergency Provider Nurse Practitioner Family; PCP Internal Medicine
DX: N30.90 Cystitis, unspecified without hematuria (principal); E03.9 Hypothyroidism, unspecified; Z85.3 Personal history of malignant neoplasm of breast
CPT/HCPCS: 81003; 87086; 99213; G0463

== ENCOUNTER 2025-04-19 08:17 | Emergency (ER) | payer BC, SELFPAY ==
--- OUTSIDE RECORDS SUMMARY | 2025-04-19 08:20 | XMS_ITS ---
Author Organization [facility] Address [address] [place] [address] Care Team Providers Care Technical Support Professional Name Role Phone Sandra Nunez MD PhD Unavailable Sahil Easley DO Primary Care Provider [phone] Lizeth Osorio MD Unavailable [phone] Active Problems Problem Noted Date Diagnosed Date [...] routine follow-up of TFTs and discontinuing levothyroxine. director long term care current use of aromatase inhibitor Osteopenia 01/31/2015 [...]
--- OUTSIDE RECORDS SUMMARY | 2025-04-19 08:20 | XMS_ITS | Encounter Summary ---
Author Organization [facility] Address [address] [place] [address] Phone Care Team Providers Care International Coordinator Name Role Phone Sahil Easley DO Primary Care Provider [phone] Lizeth Osorio MD Primary Care Provider [phone] Enrique, Sandra Caceres MD PhD Unavailable [phone] Sahil Easley DO Primary Care Provider [phone] Lizeth Osorio MD Unavailable [phone] Encounter Details Date Type Department Care Team (Late st Contact Info) Description 12/09/2017 Orders Only [facility] ProviderRobbie MD [address] [place] [id number] Social History Tobacco Use Types Packs/Day Years Used Date Smoking Tobacco: Never Comments Unknown Sex and Gender Information Value Date Recorded Sex Assigned at Not on file 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 Gender Identity Female 03/28/2019 6:48 AM CDT [...] on filedocumented in this encounter Care Teams International Coordinator Relationship Specialty Start Date End Date Sahil Easley DO PCP - General 09/07/16 04/08/20 Lizeth Osorio MD PCP - General 04/09/20 09/07/24 Sahil Easley DO [address] [facility] [address] [place] [address] PCP - General Internal Medicine 09/08/24 Sandra Nunez MD PhD [address] [facility] [address] [place] [address] Medical Oncologist/Rail Car Driver Medical Oncology 08/28/20 Lizeth Osorio MD [address] [address] Nurse Practitioner 11/28/24 documented as of this encounter
--- OUTSIDE RECORDS SUMMARY | 2025-04-19 08:20 | XMS_ITS | Clinical Summary ---
Author Organization [facility] Address [address] [place] [address] Care Team Providers Care Production Engine Repairer Name Role Phone Sandra Nunez MD PhD Unavailable Sahil Easley DO Primary Care Provider [phone] Lizeth Osorio MD Unavailable [phone] Allergies No known active allergies Medications cholecalciferol (VITAMIN D-3) 2000 unit tabletIndicatio ns:Vitamin D Deficiency 1 tablet (2,000 Units total) unit leader before breakfast Active calcium carbonate-vitam in D3 1,500 mg (600 mg elemental)-400 unit capsuleIndicati ons:Hypocalcemi a Prevention,Prev ention of Vitamin D Deficiency Take 1 tablet/capsule by mouth unit leader before breakfast Active magnesium glycinate 118 mg magnesium capsuleIndicati ons:Supplement Take 2 tablets by mouth nightly Active tamoxifen (NOLVADEX) 20 mg tablet TAKE 1 TABLET(20 MG) BY MOUTH DAILY 30 tablet 5 5 Active levothyroxine (SYNTHROID) 50 mcg tabletIndicatio ns:Malignant neoplasm of lower-outer quadrant of right breast of female, estrogen receptor positive (HCC) TAKE 1 TABLET BY MOUTH EVERY MORNING BEFORE BREAKFAST 90 tablet 3 5 Active metFORMIN (GLUCOPHAGE) 500 mg tabletIndicatio ns:Insulin resistance TAKE 1 TABLET BY MOUTH THREE TIMES DAILY 90 tablet 6 5 Active Active Problems Problem Noted Date [...] routine follow-up of TFTs and discontinuing levothyroxine. 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 Osteopenia 01/31/2015 [...] Team Description 02/28/2025 3:30 PM CDT Lab [facility] [address] [place] [address] Subclinical hypothyroidism; Malignant neoplasm of lower-outer quadrant of right breast of female, estrogen receptor positive (HCC) 02/28/2025 Orders Only [facility] Endocrinology Metabolism and Lipid [address] [facility] [address] [place] [address] [place] [address] Ying Gonzáles, RN Subclinical hypothyroidism (Primary Dx) 02/01/2025 Orders Only [facility] Endocrinology Metabolism and Lipid [address] [facility] [address]th [place] [address] [place] [address] Ying Gonzáles, RN 01/29/2025 Orders Only [facility] Oncology [address] [facility] [address] [place] [address] Montez White Malignant neoplasm of lower-outer quadrant of right breast of female, estrogen receptor positive (HCC) (Primary Dx) 01/23/2025 4:00 PM CDT Telemedicine [facility] Endocrinology Metabolism and Lipid [address] [facility] [address] [place] [address] [place] [address] Jamar Blue MD Subclinical hypothyroidism (Primary Dx) from Last 3 Months Immunizations Immunization Administration Dates Next Due Influenza, Quadrivalent, Spl it, Preservative Free, Intramuscular 04/05/2020 Influenza, Trivalent, Preservative Free, Intramu scular 05/01/2014 Surgical History Surgery Date Site/Laterality Comments CT BREAST REDUCTION 07/19/2001 - 07/18/2002 Breast Surgery [...] on file Legal Sex Female 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 ALL AROUND PRESSER Gender Identity Female 03/28/2019 6:48 AM CDT [...] 07/20/2024, 01/25/2017 Medical Devices Implanted Type Area Marker Shipments Device Identifier Shelf Expiration Date Model / [...] DETECTION WITH GENOTYPING Routine 07/20/2024 4:36 PM ALL AROUND PRESSER SCREENING MAMMOGRAM W ADY Routine 02/19/2014 12:28 [...] MD PhD LAB BLOOD ORDERABLES Final Result [facility] Department [place] [address] * Differential, auto (02/28/2025 2:24 PM CDT) Neutrophil abs 3.84 1.50 - 6.50 K/cumm Imm gran abs 0.01 0.00 - 0.10 K/cumm [facility] Lymphocyte abs 2.29 0.80 - 3.30 K/cumm [facility] Monocyte abs 0.55 0.20 - 0.80 K/cumm [facility] Eosinophil abs 0.05 0.00 - 0.50 K/cumm [facility] Basophil abs 0.05 0.00 - 0.10 K/cumm [facility] Neutrophil pct 56.7 % [facility] Comment: Interpretive Data Percent cell count reference ranges are not reported, since discordance with absolute values may lead to misinterpretation of CBC data. Current Interpretive Data was last revised on 2017. Imm gran pct 0.1 % [facility] Comment: Interpretive Data Percent cell count reference ranges are not reported, since discordance with absolute values may lead to misinterpretation of CBC data. Current Interpretive Data was last revised on 2017. Lymphocyte pct 33.7 % [facility] Comment: Interpretive Data Percent cell count reference ranges are not reported, since discordance with absolute values may lead to misinterpretation of CBC data. Current Interpretive Data was last revised on 2017. Monocyte pct 8.1 % [facility] Comment: Interpretive Data Percent cell count reference ranges are not reported, since discordance with absolute values may lead to misinterpretation of CBC data. Current Interpretive Data was last revised on 2017. Eosinophil pct 0.7 % [facility] Comment: Interpretive Data Percent cell count reference ranges are not reported, since discordance with absolute values may lead to misinterpretation of CBC data. Current Interpretive Data was last revised on 2017. Basophil pct 0.7 % [facility] Comment: Interpretive Data Percent cell count reference ranges are not reported, since discordance with absolute values may lead to misinterpretation of CBC data. Current Interpretive Data was last revised on 2017. Blood 02/28/2025 2:24 PM CDT 02/28/2025 2:52 PM CDT us Sandra Caceres Ma, MD PhD LAB BLOOD ORDERABLES Final Result [facility] Department [place] [address] * (ABNORMAL) CBC with auto differential (02/28/2025 2:24 PM CDT) WBC 6.79 3.80 - 9.90 K/cumm Hgb 11.9 11.9 - 15.5 g/dL [facility] Hct 35.8 35.6 - 45.5 % [facility] Plt 260 150 - 400 K/cumm [facility] MPV 10.2 9.1 - 12.3 fL [facility] RBC 3.80(L) 3.90 - 5.20 M/cumm [facility] MCV 94.2 81.3 - 96.4 fL [facility] MCH 31.3 27.1 - 33.3 pg [facility] MCHC 33.2 32.3 - 35.7 g/dL [facility] RDW CV 13.1 11.1 - 14.9 % [facility] RDW SD 45.1 35.7 - 48.1 fL [facility] NRBC abs 0.00 0.00 - 0.01 K/cumm [facility] Blood 02/28/2025 2:24 PM CDT 02/28/2025 2:52 PM CDT Sandra Caceres Ma, MD PhD LAB BLOOD ORDERABLES Final Result Performing Organization Address City/[facility]/ZIP Co de Phone Number [facility] [place] [address] * Cancer antigen 15-3 (02/28/2025 2:24 PM CDT) [facility] CA 15-3 ag 22.7 <=25.0 units/mL Comment: Interpretive Data The [place] CA 15-3 assay procedure was used. Results from different manufacturers or methods may not be comparable. Serial testing should be performed using the same method. Blood 02/28/2025 2:24 PM CDT 02/28/2025 2:52 PM CDT Sandra Caceres Ma, MD PhD LAB BLOOD ORDERABLES Final Result Performing Organization Address [facility]/ZIP Co de Phone Number [facility] [place] [address] * T3, free (02/28/2025 2:24 PM CDT) Free T3 2.7 2.0 - 4.4 pg/mL Blood 02/28/2025 2:24 PM CDT 02/28/2025 2:52 PM CDT Jamar Blue MD LAB BLOOD ORDERABLES Fin al Result Performing Organization Address [facility] [place] [address] * TSH (02/28/2025 2:24 PM CDT) Pathologist [facility] Thyroid Stimulating Hormone 3.26 0.30 - 4.20 mcIUnit/mL Blood 02/28/2025 2:24 PM CDT 02/28/2025 2:56 PM CDT Jamar Blue MD LAB BLOOD ORDERABLES Fin al Result Performing Organization Address [facility] Co de Phone Number [facility] [place] [address] * T4, free (02/28/2025 2:24 PM CDT) Free T4 1.27 0.90 - 1.70 ng/dL Blood 02/28/2025 2:24 PM CDT 02/28/2025 2:52 PM CDT Jamar Blue MD LAB BLOOD ORDERABLES Fin al Result Performing Organization Address [facility] [place] [address] * (ABNORMAL) Hemoglobin A1c (02/28/2025 2:24 PM CDT) Hgb A1C 5.8(H) 4.0 - 5.6 % Estimated Average Glucose 120 mg/dL [facility] Comment: The ADA recommends reporting an estimated [...] MD LAB BLOOD ORDERABLES Fin al Result [facility] Department [place] [address] * (ABNORMAL) Comprehensive metabolic panel (02/28/2025 2:24 PM CDT) Sodium 142 135 - 145 mmol/L Potassium, pl 4.2 3.3 - 4.9 mmol/L [facility] Chloride 104 97 - 110 mmol/L [facility] CO2 31 22 - 32 mmol/L [facility] Anion gap 7 2 - 15 mmol/L [facility] BUN 20 6 - 25 mg/dL [facility] Creatinine 0.86 0.60 - 1.10 mg/dL [facility] Glucose 98 70 - 199 mg/dL [facility] Comment: Interpretive Data Fasting glucose >/= 126 [...] classification and Diagnosis of Diabetes Diabetes Care 2021; 46: S19-S40. Current interpretive data was last revised 2022. Calcium 9.9 8.5 - 10.3 mg/dL [facility] Bilirubin, total 0.2 0.1 - 1.2 mg/dL [facility] Protein, pl 6.6 6.5 - 8.5 g/dL [facility] Albumin 4.1 3.5 - 5.0 g/dL [facility] Alk phos 34(L) 40 - 130 Units/L [facility] ALT 18 7 - 45 Units/L [facility] AST 22 10 - 45 Units/L [facility] Blood 02/28/2025 2:24 PM CDT 02/28/2025 2:52 PM CDT us Sandra Caceres Ma, MD PhD LAB BLOOD ORDERABLES Final Result [facility] Department [place] [address] * High Risk HPV DNA Detection with Genotyping (Molecular component) (07/20/2024 4:36 PM ALL AROUND PRESSER) Pathologist [facility] HPV HR 16 Not Detected Not Detected [facility] HPV HR 18 Not Detected Not Detected [facility] HPV HR Non 16/18 Not Detected Not Detected [facility] Comment: Interpretive Data Nucleic acid amplification for [...] this test have been verified by the [facility] Molecular Infectious Disease laboratory. Correlate with separately reported cytology results, as applicable. Interpretive data last revised 23 Endocervical 07/20/2024 4:36 PM ALL AROUND PRESSER 07/24/2024 10:20 AM ALL AROUND PRESSER us Isacc Ball MD LAB BODY FLUIDS AND STOO LS ORDERABLES Final Result [facility] Department [place] [address] [facility] * Screening Mammogram W Ady (02/19/2014 12:28 PM CDT) Anatomical Region Laterality Modality Breast N/A Mammography 02/19/2014 12:2 8 PM CDT Narrative 02/20/2014 10:24 AM CDT NOY CHRISTIAN M.D. FINAL REPORT ACC# Date Time Exam [id number] Feb 19, 2014 12:28:00 [facility] [id number] Bilateral screen w ady Technologist(s): Jory Truong; ; EXAMINATION: Mammogram Technique: Bilateral Bilateral Full-Field Digital Screening Mammogram and Digital Breast Tomosynthesis were performed. Views obtained: bilateral craniocaudal and bilateral mediolateral oblique. Computer Aided Detection of the 2D images was performed with [employer].3 version 9.3. Mammogram Findings: The present examination has been compared to a prior imaging study performed at [facility] on 06/20/2012. The breasts are heterogeneously dense [...] M.D. FINAL REPORT ACC# Date Time Exam [id number] Feb 19, 2014 12:28:00 [facility] [id number] Bilateral screen w ady Technologist(s): Jory Truong; ; EXAMINATION: Mammogram Technique: Bilateral Bilateral Full-Field Digital Screening Mammogram and Digital Breast Tomosynthesis were performed. Views obtained: bilateral craniocaudal and bilateral mediolateral oblique. Computer AidedDetection of the 2D images was performed with [employer].3 version 9.3. Mammogram Findings: The present examination has been compared to a prior imaging study performed at [facility] on 06/20/2012. The breasts are heterogeneously dense [...] Incomplete: Need additional imaging evaluation. Requested By: bK Dominguez M.D. Dictated By: NOY CHRISTIAN M.D. on Feb 20 2014 10:24A This document has been electronically signed by: NOY CHRISTIAN M.D. on Feb 20 2014 10:24A Historical Provider MD MEAD MAMMO PROCEDURES Kamila l Result from Last 3 Months or Most Recently Relevant to Health Maintenance Insurance [facility] ANTHEM ACCESS BLUE EPIS [place] BLUE EPIS OOS [facility] Care Teams Production Engine Repairer Relationship Specialty Start Date End Date Sahil Easley DO [address] [facility] [address] [place] [address] PCP - General Internal Medicine 09/08/24 Sandra Nunez MD PhD [id number] [place] [address] Medical Oncologist/Heater Engineer Helper Medical Oncology 08/28/20 Lizeth Osorio MD [address] [place] [address] Nurse Practitioner 11/28/24
--- OUTSIDE RECORDS SUMMARY | 2025-04-19 08:20 | XMS_ITS | Clinical Summary ---
Author Organization [facility] [place] Address [address] [facility] [address] Phone Care Team Providers Care Advertising Rep Name Role Phone Sahil Easley DO Primary Care Provider Allergies No known active allergies Medications multivitamin (DAILY-KIN) tablet Take 1 Tab by mouth daily. Active CALCIUM ORAL Take by mouth. Active drospirenone-e.e stradiol-lm.FA (BEYAZ) 3-0.02-0.451 mg (24) Tablet tablet Take 1 Tab by mouth daily. Active SOLIFENACIN SUCCINATE (VESICARE ORAL) Take by mouth. Active Active Problems Patient Care Coordination No te Formatting of this note migh t be different from the original. Primary Care: Sahil Easley DO Referring Provider: Sahil Easley DO [address] [place] [address] Other: Problem Noted Date Diagnosed Date Malignant neoplasm of breast (female), unspecifi ed site Overview (03/07/2014): 02/2014; invasive lobular cancer; right breast; clinical stage II-T2, N0, M0; [place] positive HER-2 negative Family History Medical History Relation Name Comments Diabetes Father Heart Disease Father Breast Cancer Neg Hx Ovarian Cancer Neg Hx Uterine Cancer Neg Hx Relation Name Status Comments Father Social History Tobacco Use Types Packs/Day Years Used Date Smoking Tobacco: Never Smokeless Tobacco: Never Tobacco Cessation:Counseling Given: No Alcohol Use Standard Drinks/Week Comments Yes 0 (1 standard drink = 0.6 oz pur e alcohol) moderate Comments No Sex and Gender Information Value Date Recorded Sex Assigned at Not on file Legal Sex Female 3:53 PM CDT Gender Identity Not on file Sexual Orientation Not on file Occupation Industry Job Start Date Job End Date Not on file Not on file Not on file Not on file Last Filed Vital Signs Vital Sign Reading Time Taken Comments Blood Pressure 123/73 03/07/2014 4:54 PM CDT Pulse 75 03/07/2014 4:54 PM CDT Temperature - - Respiratory Rate - - Oxygen Saturation - - Inhaled Oxygen Concentration - - Weight 81.2 kg (179 lb) 03/07/2014 4:54 PM CDT Height 162.6 cm (5' 4) 03/07/2014 4:54 PM CDT Body Mass Index 30.73 03/07/2014 4:54 PM CDT Plan of Treatment Health Maintenance Due Date Last Done Comments DTAP/TDAP/TD VACCINES (1 - Tdap) 1982 HPV/Cotest (21-29) 1984 CERVICAL CANCER SCREENING 1993 HPV/Cotest (30-65) 1993 PAP SMEAR 1993 COLORECTAL SCREENING 2008 Colorectal Cancer Screening 2008 FIT-DNA Q 3 years 2008 FIT/FOBT Q 1 year 2008 Flex Sig/CT Colonography Q 5 years 2008 ZOSTER VACCINE (1 of 2) 2013 BREAST CANCER SCREENING 02/27/2015 02/28/20 14, 02/23/2014, 02/19/2014, Additional history exists INFLUENZA VACCINE (#1) 2025 RSV VACCINE (60+ or ) (1 - 1-dose 75+ series) 2038 Procedures Procedure Name Priority Date/Time Associated Diagnosis Comments MAMMO UNILATERAL DIAG RIGHT Routine 02/27/2014 from Last 3 Months or Most Recently Relevant to Health Maintenance Results * MAMMO UNILATERAL DIAG RIGHT (02/27/2014) Anatomical Region Laterality Modality Breast Right Other us Abstract Provider MAMMO ORDERABLES Edited Result - Final from Last 3 Months or Most Recently Relevant to Health Maintenance Insurance BS BLUE ACCESS/TRUE BLUE PPO Care Teams Advertising Rep Relationship Specialty Start Date End Date Sahil Easley DO PCP - General 07/04/15
--- OUTSIDE RECORDS SUMMARY | 2025-04-19 08:20 | XMS_ITS | Clinical Summary ---
Author Organization [facility] Address [facility] [place] [address] Care Team Providers Care Digital Field Service Technician Name Role Phone Unavailable Primary Care Provider [...] 50 MCG tablet TK 1 T PO MONKEY BREEDER B MANDA 03/08/2020 Active metFORMIN 500 MG tablet Take 500 mg by mouth 3 (three) times daily. 03/08/2020 Active Calcium Carb-Cholecalci ferol (CALCIUM CARBONATE-VITAM IN D3 OR) Active zinc gluconate 50 MG Tab Take 1 tablet by mouth daily. 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 Has had improvement in bone density in lumbar spine and left hip. Infusions per medical oncology. Nausea 06/25/2014 Malignant neoplasm of lower- outer quadrant of right breast of female, estrogen receptor positive ([facility]/HCC) 03/06/2014 Overview (04/05/2020): 02/2014; invasive lobular cancer; right breast; clinical stage II-T2, N0, M0; ER/[place] positive HER-2 negative Last Assessment & Plan: [...] on file Legal Sex Female 9:07 PM [employer] Gender Identity Not on file Sexual Orientation [...] Cervical Cancer Screening wi th HPV 01/25/2022 PHQ-2 (Physician [place]) 07/19/2024 COVID-19 Vaccine (3 - 2024-2 6 season) 2025 10/27/2020, 10/01/2020 RSV Immunization or 60+ Years (1 - [...] patient's age to complete this topic Insurance [facility]
[2025-04-19 08:26] VITALS: BP 112/70; PULSE 90; RESP 18; TEMP 37.1; O2SAT 97
[2025-04-19 08:39] LABS: EDUAAPPEAR Clear; EDUABILI Negative (Negative); EDUABLOOD Negative (Negative); EDUACOLOR1 Yellow; EDUAGLUCOSE Negative (Negative); EDUAKETONE Negative (Negative); EDUALEUKO Negative (Negative); EDUANITRATE Negative (Negative); EDUAPH 8.5; EDUAPROTEIN Negative (Negative); EDUASPGRAVITY 1.020; EDUAUROBILI 0.2
--- NOTE | 2025-04-19 08:51 | ED.FEMALEGU ---
HPI - Female Genitourinary General Chief complaint: Urogenital-Female Stated complaint: UTI Time Seen by Provider: 04/19/25 08:35 Source: patient, RN notes reviewed and old records reviewed Mode of arrival: ambulatory Limitations: no limitations History of Present Illness HPI Narrative: Patient presents today complaining of 2 day history of urgency, frequency and noted some blood on her toilet paper yesterday. She had a telehealth visit yesterday and was placed on Macrobid and reports no improvement in symptoms. Review of patient's chart shows she had a visit here at [facility] approx 1.5 mos ago with similar symptoms and was initially placed on Macrobid. Her subsequent urine culture showed Klebsiella with probable ESBL, intermediate for Macrobid, resistant to ampicillin, cefazolin, cefepime, cefpodoxime, ceftriaxone. She was switched to Cipro and infection cleared. Related Data Home Medications ?Medication ?Instructions ?Recorded ?Confirmed ?Last Taken ?Type ascorbate calcium (vitamin C) 500 500 mg PO DAILY 04/22/20 03/11/25 Unknown History mg tablet cholecalciferol (vitamin D3) 325 325 mcg PO WEEKLY 04/22/20 03/11/25 Unknown History mcg (13,000 unit) capsule levothyroxine 50 mcg tablet 50 mcg PO DAILY 04/22/20 03/11/25 Unknown History (Synthroid) metformin 500 mg tablet 500 mg PO DAILY 04/22/20 03/11/25 Unknown History tamoxifen 20 mg tablet mg 03/11/25 Unknown History Allergies Allergy/AdvReac Type Severity Reaction Status Date / Time No Known Allergies Allergy Verified 04/19/25 08:29 [facility] Past Medical History Medical History History of breast cancer Hypothyroid Surgical History Surgical History History of lymph node dissection of axilla History of wisdom tooth extraction History of tonsillectomy History of breast reconstruction History of mastectomy Family History Family History Father Diabetes mellitus Father Diabetes mellitus Family history of cardiovascular disease Social History Social History Smoking status: Never smoker Comments At time of signature, I have reviewed and agree with nursing past medical, surgical, social and family history unless otherwise noted. Please see nursing chart for further information. There is no relevant family history pertinent to the presenting complaint Exam Narrative: GENERAL: Well-appearing, well-nourished, and in no acute distress. HEAD: Normocephalic, atraumatic. EYES: EOMI. No redness or drainage. Conjunctivae normal. ENT: Mucous membranes pink and moist. NECK: Normal AROM. CHEST: No respiratory distress. EXTREMITIES: Normal range of motion. No edema. SKIN: Warm, dry, no rash. Capillary refill normal. Normal skin turgor. NEURO: No focal deficits. Alert and oriented x3. Gait steady. PSYCH: Normal affect. No signs of depression or anxiety. Course Course Level of Care: [facility] Visit Vital Signs Vital signs: Vital Signs Temperature 98.7 F 04/19/25 08:26 Pulse Rate 90 04/19/25 08:26 Respiratory Rate 18 04/19/25 08:26 Blood Pressure 112/70 04/19/25 08:26 Pulse Oximetry 97 04/19/25 08:26 Oxygen Delivery Room Air 04/19/25 08:26 Temperature 98.7 F 04/19/25 08:26 Pulse Rate 90 04/19/25 08:26 Respiratory Rate 18 04/19/25 08:26 Blood Pressure 112/70 04/19/25 08:26 Pulse Oximetry 97 04/19/25 08:26 Oxygen Delivery Room Air 04/19/25 08:26 Reviewed MDM - Female Genitourinary MDM Narrative Medical decision making narrative: Patient presents today complaining of 2 day history of urgency, frequency and noted some blood on her toilet paper yesterday. She had a telehealth visit yesterday and was placed on Macrobid and reports no improvement in symptoms. Review of patient's chart shows she had a visit here at [facility] approx 1.5 mos ago with similar symptoms and was initially placed on Macrobid. Her subsequent urine culture showed Klebsiella with probable ESBL, intermediate for Macrobid, resistant to ampicillin, cefazolin, cefepime, cefpodoxime, ceftriaxone. She was switched to Cipro and infection cleared. Today, patient's UA was completely negative, but this is to be expected given that she is currently on antibiotics, although symptoms are not improving. Will place her on Augmentin given previous urine culture results. Discussed ESBL with patient so she understands this resistance. Urine culture pending. VSS. Anticipatory guidance and ED precautions given. Differential Diagnosis Differential diagnosis: Likely urinary tract infection, vaginitis, cystitis and other (Pyelonephritis) Lab Data Attestation: I reviewed the patient's lab results. Labs: Lab Results 04/19/25 Range/Units 08:35 POC Urine Color Yellow POC Urine Clarity Clear POC Urine pH 8.5 POC Ur Specif [place] 1.020 POC Urine Protein Negative (Negative) POC Ur Glucose (UA) Negative (Negative) POC Urine Ketones Negative (Negative) POC Urine Blood Negative (Negative) POC Urine Nitrite Negative (Negative) POC Urine Bilirubin Negative (Negative) POC Urine Urobilinogen 0.2 POC U Leukocyte Esteras Negative (Negative) Critical Care Time Critical Care Time Critical Care Time: No Discharge Plan Discharge Clinical Impression: UTI symptoms Patient Disposition: Home Condition: Stable Instructions: Antibiotic Form, Urinary Tract Infection in Women (DC) Additional Instructions: Based on your symptoms, you will be started on Augmentin. You will be notified by telephone if your urine culture comes back that he needed different antibiotic. Stay hydrated. As discussed, if symptoms worsen, please go to the ER immediately for further evaluation. Patient Language: Citizen Of [place] Prescriptions: New amoxicillin-pot clavulanate 875-125 mg tablet 1 tablet PO Q12H 7 Days Qty: 14 0RF No Action tamoxifen 20 mg tablet nitrofurantoin monohyd/m-cryst [Macrobid] 100 mg capsule 100 mg PO Q12H 5 Days Qty: 10 0RF Rx Instructions: must administer with a meal/food levothyroxine [Synthroid] 50 mcg tablet 50 mcg PO DAILY cholecalciferol (vitamin D3) 325 mcg (13,000 unit) capsule 325 mcg PO WEEKLY metformin 500 mg tablet 500 mg PO DAILY ascorbate calcium (vitamin C) 500 mg tablet 500 mg PO DAILY Follow-up/Referrals: Sahil Easley DO [Primary Care Provider, Internal Medicine] Time of Disposition: 08:54
== END 2025-04-19 08:58 | disposition home or self-care (01) ==
PROVIDERS: Emergency Provider Nurse Practitioner; PCP Internal Medicine
DX: R39.15 Urgency of urination (principal); R35.0 Frequency of micturition; E03.9 Hypothyroidism, unspecified; Z85.3 Personal history of malignant neoplasm of breast
CPT/HCPCS: 81003; 87086; 99213; G0463